=== PATIENT | male | born 1960 | race Two or more races ===

== ENCOUNTER 2019-09-06 16:49 | Inpatient (IN) | payer OTHER, MEDICAID ==
[~2019-09-06 16:49] MED LIST: LORAZEPAM INJ 2 MG/1 ML VIAL ONE
[2019-09-06] MEDS ORDERED: LORAZEPAM INJ 2 MG/1 ML VIAL ONE ×2 (16:52→17:44)
--- NOTE | 2019-09-06 16:59 | ER Document Report ---
ED General - General Chief Complaint: Seizure Stated Complaint: SEIZURE Time Seen by Provider: 09/06/19 16:59 Notes: Patient is a 59-year-old male with history of alcohol use that presents to the emergency department for chief complaint of back pain and seizures. History provided mainly by EMS and patient's and and family. Apparently earlier today the patient was feeling lightheaded, and when he was leaving work, he started vomiting after drinking a 5-hour energy drink according to his friend that he works with, and then he started complaining of low back pain which she has a history of according to the patient's son, and EMS was called due to the pain and they got him in the ambulance, they gave him IV Dilaudid, and shortly after started having generalized seizure activity, he was given IM Versed 5 mg, then 2 mg of IV Ativan as he had a few more episodes of seizure-like activity. No reported history of seizures in the past. His last drink was yesterday evening. His son states that he drinks on a regular basis there are days that he does not drink though. No prior history of withdrawal seizures. He at this time is answering questions, mildly confused, and complaining of low back pain particularly when he sits up. It is on both sides, right going over to the left. Denies any chest pain or anterior abdominal pain. As noted he did have nausea and vomiting earlier. And per EMS he did vomit one time. Past Medical History: Alcohol use, hypertension Past Surgical History: Reviewed, no pertinent surgical history Social History: Smokes cigarettes, drinks alcohol regular basis, denies illicit drug use. Family History: Reviewed and noncontributory for presenting illness Allergies: Reviewed, see documented allergy list. REVIEW OF SYSTEMS: Other than noted above, the 12 point review of systems was reviewed with the patient and were negative, all pertinent findings are included in the HPI. PHYSICAL EXAMINATION: Vital signs reviewed, nursing noted reviewed. GENERAL: Patient is somnolent, but will answer questions, understands he is in the hospital. HEAD: Atraumatic, normocephalic. EYES: Eyes appear normal, extraocular movements intact, sclera anicteric, conjunctiva are normal. ENT: nares patent, oropharynx clear without exudates. Moist mucous membranes. NECK: Normal range of motion, supple without lymphadenopathy LUNGS: Lung sounds somewhat diminished at the bases, clear in the upper hurley, no wheezing, rhonchi or rales, no acute respiratory distress. HEART: Regular rate and rhythm without murmurs ABDOMEN: Soft, nontender, normoactive bowel sounds. No rebound, guarding, or rigidity. No masses appreciated. EXTREMITIES: Nontender, good range of motion, no pitting or edema. NEUROLOGICAL: No focal neurological deficits. Moves all extremities spontaneously Motor and sensory grossly intact on exam. Patient did have tonic- clonic activity, that resolved spontaneously, and medially after patient was able to answer simple questions. PSYCH: Flat affect, but mildly anxious as well. SKIN: Warm, diaphoretic, no rashes noted. - Related Data Allergies/Adverse Reactions: No Known Allergies Allergy (Unverified 09/06/19 18:16) Past Medical History - Social History Smoking Status: Current Every Day Smoker Family History: Reviewed & Not Pertinent Physical Exam - Vital signs Vitals: Temp Resp BP Pulse Ox 97.5 F 34 H 146/90 H 94 09/06/19 16:56 09/06/19 16:56 09/06/19 16:56 09/06/19 16:56 Course - Re-evaluation Re-evalutation: Patient seen and examined vital signs reviewed. Laboratory data and imaging were ordered as appropriate for the patient's presenting symptoms and complaint, with consideration of any critical or life threatening conditions that may be associated with their obtained history and exam as noted above. Patient was treated with supplemental oxygen, as patient was somnolent upon arrival, his pulse ox was 89% on a simple mask, briefly switched to a nonrebreather. Patient was having convulsions but is initially answering questions, and did not appear to be a true generalized tonic clonic seizure, he was answering questions, but slowly. Did not seem to be too postictal. He was complaining of back pain. Blood work, and CT scan of the abdomen and pelvis were ordered, and while the patient was in CT he did have another seizure was brought back to the emergency department, it did appear the patient was having a generally tonic-clonic seizure, eyes rolled back, is not responsive, patient was given 2 mg of IV Ativan at that point, and 10 mg of IV Valium. I was concerned the patient may be having withdrawal seizures, is been 24 hours since his last drink, although he reportedly has not had a history of withdrawal symptoms from alcohol according to family and friends. CT scan of the head was obtained and this was negative for any acute intracranial abnormality. Patient was given additional fentanyl for his pain, and Zofran for nausea. Results were reviewed when available and demonstrated negative CT of the abdomen and pelvis, no renal stone, CT of the head was negative, blood work only, showed a mild elevation white blood cell count, and slightly decreased bicarb, which does correlate with seizure. The patient was re-evaluated and was improved, was able to wean off oxygen, is answering questions more appropriately, pain seem to be somewhat better controlled. Evaluation was most consistent with new onset seizure, concern for possible alcohol withdrawal seizures, patient did not have any further seizure activity after receiving Valium and Ativan. His chest x-ray is also concerning for possible pneumonia, likely aspiration type given the patient had seizures and possibly aspirated. Was started on vancomycin and Zosyn. Results were discussed with the patient at this point after careful consideration I feel that that patient should be admitted to the hospital. This was discussed with the patient that it is in the best interest for their care to be admitted for further evaluation and management. Patient agreed with this pl an of care. A call was placed to the admitting physician, Dr. Hardwick who graciously accepted the patient onto their service. *Note is created using voice recognition software and may contain spelling, syntax or grammatical errors. Laboratory 09/06/19 09/06/19 09/06/19 16:50 16:50 16:50 WBC 11.4 H RBC 4.36 Hgb 13.6 Hct 40.2 MCV 92 MCH 31.1 MCHC 33.7 RDW 14.6 H Plt Count 215 Lymph % (Auto) 11.0 L Wise % (Auto) 6.6 Eos % (Auto) 0.2 Baso % (Auto) 0.7 Absolute Neuts (auto) 9.3 H Absolute Lymphs (auto) 1.2 Absolute Monos (auto) 0.8 Absolute Eos (auto) 0.0 Absolute Basos (auto) 0.1 Seg Neutrophils % 81.5 H Sodium 143.6 Potassium 4.1 Chloride 108 H Carbon Dioxide 21 L Anion Gap 15 BUN 19 Creatinine 1.12 Est GFR ( Amer) > 60 Est GFR (MDRD) Non-Af > 60 Glucose 133 H Calcium 9.2 Total Bilirubin 0.4 Direct Bilirubin 0.3 Neonat Total Bilirubin Not Reportable Neonat Direct Bilirubin Not Reportable Neonat Indirect Bili Not Reportable AST 29 ALT 27 Alkaline Phosphatase 64 Creatine Kinase Total Protein 7.1 Albumin 4.3 Lipase 88.0 TSH Prolactin Serum Alcohol < 10 09/06/19 09/06/19 09/06/19 16:50 16:50 16:50 WBC RBC Hgb Hct MCV MCH MCHC RDW Plt Count Lymph % (Auto) Wise % (Auto) Eos % (Auto) Baso % (Auto) Absolute Neuts (auto) Absolute Lymphs (auto) Absolute Monos (auto) Absolute Eos (auto) Absolute Basos (auto) Seg Neutrophils % Sodium Potassium Chloride Carbon Dioxide Anion Gap BUN Creatinine Est GFR ( Amer) Est GFR (MDRD) Non-Af Glucose Calcium Total Bilirubin Direct Bilirubin Neonat Total Bilirubin Neonat Direct Bilirubin Neonat Indirect Bili AST ALT Alkaline Phosphatase Creatine Kinase 193 H Total Protein Albumin Lipase TSH 0.60 Prolactin 27.19 H Serum Alcohol Abdomen/Pelvis CT 09/06/19 17:00 IMPRESSION: There are no acute findings in the abdomen or pelvis. There is mild airspace disease in the lower lobes of the lungs, atelectasis versus pneumonia. Chest X-Ray 09/06/19 17:01 IMPRESSION: Low inspiratory lung volumes and patchy bibasilar opacities that could represent atelectasis. Clinical correlation to exclude an infection is recommended. Head CT 09/06/19 18:24 IMPRESSION: No acute intracranial abnormality. EVIDENCE OF ACUTE STROKE: NO. 09/06/19 22:36 - Vital Signs Vital signs: Temp Pulse Resp BP Pulse Ox 97.5 F 14 109/63 96 09/06/19 16:56 09/06/19 22:00 09/06/19 21:01 09/06/19 22:00 - Laboratory Result Diagrams: 09/06/19 16:50 09/06/19 16:50 Laboratory results interpreted by me: 09/06/19 09/06/19 09/06/19 16:50 16:50 16:50 WBC 11.4 H RDW 14.6 H Lymph % (Auto) 11.0 L Absolute Neuts (auto) 9.3 H Seg Neutrophils % 81.5 H Chloride 108 H Carbon Dioxide 21 L Glucose 133 H Creatine Kinase Prolactin 27.19 H 09/06/19 16:50 WBC RDW Lymph % (Auto) Absolute Neuts (auto) Seg Neutrophils % Chloride Carbon Dioxide Glucose Creatine Kinase 193 H Prolactin - EKG Interpretation by Me Additional EKG results interpreted by me: EKG demonstrates sinus rhythm with a ventricular rate of 83 bpm, normal axis, QTC 480 ms, no ST elevation, no prior for comparison. Critical Care Note - Critical Care Note Total time excluding time spent on procedures (mins): 34 Comments: Critical care time 34 minutes exclusive from separate billable procedures for a patient requiring complex medical decision making, and high potential for clinical deterioration. In a patient with multiple seizures, and hypoxia, concern for medical deterioration from neuro logical standpoint. Time spent obtaining history from patient or surrogate, discussions with consultants, development of treatment plan with patient or surrogate, evaluation of patient's response to treatment, examination of patient, ordering and performing treatments and interventions, ordering and review of laboratory studies, re- evaluation of patient's condition, ordering and review of radiographic studies and review of old charts Discharge - Discharge Clinical Impression: Seizure Aspiration pneumonia Qualifiers: Aspiration pneumonia type: unspecified Laterality: unspecified laterality Lung location: unspecified part of lung Qualified Code(s): J69.0 - Pneumonitis due to inhalation of food and vomit Leukocytosis Qualifiers: Leukocytosis type: unspecified Qualified Code(s): D72.829 - Elevated white blood cell count, unspecified Back pain Qualifiers: Back pain location: low back pain Chronicity: unspecified Back pain laterality: bilateral Sciatica presence: unspecified whether sciatica present Qualified Code(s): M54.5 - Low back pain Condition: Stable Disposition: ADMITTED OBSERVATION Admitting Provider: Ronen (Hospitalist) Unit Admitted: Telemetry
[2019-09-06 17:09] LABS: ABSOLUTE BASOPHILS # (AUTO) 0.1 10^3/uL (0.0-0.2); ABSOLUTE LYMPHOCYTES (AUTO) 1.2 10^3/uL (0.5-4.7); ABSOLUTE MONOCYTES (AUTO) 0.8 10^3/uL (0.1-1.4); ABSOLUTE NEUT (AUTO) 9.3 10^3/uL (1.7-8.2); BASOPHILS % (AUTO) 0.7 % (0-2); EOSINOPHILS % (AUTO) 0.2 % (0-6); HEMATOCRIT 40.2 % (37.9-51.0); HEMOGLOBIN 13.6 g/dL (13.5-17.0); MEAN CORPUSCULAR HEMOGLOBIN 31.1 pg (27.0-33.4); MEAN CORPUSCULAR HGB CONC 33.7 g/dL (32.0-36.0); MEAN CORPUSCULAR VOLUME 92 fl (80-97); MONOCYTES % (AUTO) 6.6 % (3-13); PLATELET COUNT 215 10^3/uL (150-450); RED BLOOD COUNT 4.36 10^6/uL (4.35-5.55); RED CELL DISTRIBUTION WIDTH 14.6 % (11.5-14.0); SEGMENTED NEUTROPHILS % (AUTO) 81.5 % (42-78); TOTAL CELLS COUNTED % (AUTO) 100 %; WHITE BLOOD COUNT 11.4 10^3/uL (4.0-10.5)
[2019-09-06 17:34] LABS: ALBUMIN 4.3 g/dL (3.5-5.0); ALKALINE PHOSPHATASE 64 U/L (38-126); ANION GAP 15 (5-19); ASPARTATE AMINO TRANSFERASE 29 U/L (17-59); BILIRUBIN,DIRECT 0.3 mg/dL (0.0-0.4); BILIRUBIN,TOTAL 0.4 mg/dL (0.2-1.3); BLOOD UREA NITROGEN 19 mg/dL (7-20); CALCIUM 9.2 mg/dL (8.4-10.2); CARBON DIOXIDE 21 mmol/L (22-30); CHLORIDE 108 mmol/L (98-107); GLUCOSE 133 mg/dL (75-110); POTASSIUM 4.1 mmol/L (3.6-5.0); TOTAL PROTEIN 7.1 g/dL (6.3-8.2)
[2019-09-06 17:43] LABS: ALCOHOL < 10 mg/dL (NONE DETECTED)
[2019-09-06] MEDS ORDERED: LORAZEPAM INJ 2 MG/1 ML VIAL IV ONE (17:46)
[2019-09-06] MEDS ORDERED: DIAZEPAM INJ 10 MG/2 ML DISP.SYRIN IV ONE (17:46)
--- NOTE | 2019-09-06 18:03 | RADIOLOGY REPORT (SQ) ---
EXAM DESCRIPTION: CT ABD/PELVIS NO ORAL OR IV COMPLETED DATE/TIME: 09/06/2019 5:37 pm REASON FOR STUDY: right flank pain COMPARISON: None. TECHNIQUE: CT scan of the abdomen and pelvis performed without intravenous or oral contrast. Images reviewed with lung, soft tissue, and bone windows. Reconstructed coronal and sagittal MPR images revi ewed. All images stored on PACS. All CT scanners at this facility use dose modulation, iterative reconstruction, and/or weight based d osing when appropriate to reduce radiation dose to as low as reasonably achievable (ALARA). [facility]: Dose Right [facility]: CareDose [facility]: Dose Right [facility]: Teradose 4D [facility]: [employer] RADIATION DOSE: mGy. LIMITATIONS: None. FINDINGS: LOWER CHEST: Mild airspace disease in both lower lobes, atelectasis versus pneumonia. NON-CONTRASTED LIVER, SPLEEN, ADRENALS: 3 hepatic cysts are seen. No masses. Spleen is normal. The re is no adrenal mass. PANCREAS: No masses. No peripancreatic inflammatory changes. GALLBLADDER: No identified stones by CT criteria. No inflammatory changes to suggest cholecystitis. RIGHT KIDNEY AND URETER: No suspicious masses. Assessment limited by lack of IV contrast. No signif icant calcifications. No hydronephrosis or hydroureter. LEFT KIDNEY AND URETER: No suspicious masses. Assessment limited by lack of IV contrast. No signifi cant calcifications. No hydronephrosis or hydroureter. AORTA AND RETROPERITONEUM: No aneurysm. No retroperitoneal masses or adenopathy. BOWEL AND PERITONEAL CAVITY: No obvious masses or inflammatory changes. No free fluid. APPENDIX: Normal. PELVIS, BLADDER, AND ABDOMINAL WALL:No abnormal masses. No free fluid. Bladder normal. BONES: No significant findings. OTHER: No other significant finding. IMPRESSION: There are no acute findings in the abdomen or pelvis. There is mild airspace disease in the lower lobes of the lungs, atelectasis versus pneumonia. COMMENT: Quality ID # [id number]: Final reports with documentation of one or more dose reduction techniques (e.g., Automated exposure control, adjustment of the mA and/or kV according to patient size, use of iterative reconstruction technique) TECHNICAL DOCUMENTATION: JOB ID: [id number] [employer]- All Rights Reserved Reading location - IP/workstation name: [email or web address]
[2019-09-06] MEDS ORDERED: PIPERACILLIN/TAZOBACTAM 4.5 GM VIAL IV ONE (18:15)
[2019-09-06] MEDS ORDERED: VANCOMYCIN HCL INJ 1000 MG VIAL IV ONE (18:15)
--- NOTE | 2019-09-06 18:27 | RADIOLOGY REPORT (SQ) ---
EXAM DESCRIPTION: CHEST SINGLE VIEW COMPLETED DATE/TIME: 09/06/2019 5:46 pm REASON FOR STUDY: possible seizure COMPARISON: CT of the abdomen pelvis from 09/06/2019. EXAM PARAMETERS: NUMBER OF VIEWS: One view. TECHNIQUE: Single frontal radiographic view of the chest acquired. RADIATION DOSE: NA LIMITATIONS: None. FINDINGS: LUNGS AND PLEURA: Low inspiratory lung volumes and patchy bibasilar opacities that could r epresent atelectasis. There is no consolidation, sizeable pleural effusion or pneumothorax. MEDIASTINUM AND HILAR STRUCTURES: No mediastinal or hilar contour abnormality HEART AND VASCULAR STRUCTURES: The cardiac silhouette and pulmonary vasculature within normal limits given the low inspiratory lung volumes. BONES: No acute findings. HARDWARE: Spinal stimulator. OTHER: No other finding. IMPRESSION: Low inspiratory lung volumes and patchy bibasilar opacities that could represent atelect asis. Clinical correlation to exclude an infection is recommended. TECHNICAL DOCUMENTATION: JOB ID: [id number] [employer]- All Rights Reserved Reading location - IP/workstation name: [email or web address]
--- NOTE | 2019-09-06 19:06 | RADIOLOGY REPORT (SQ) ---
EXAM DESCRIPTION: CT HEAD WITHOUT COMPLETED DATE/TIME: 09/06/2019 6:52 pm REASON FOR STUDY: seizure COMPARISON: None. TECHNIQUE: Axial images acquired through the brain without intravenous contrast. Images reviewed wi th bone, brain and subdural windows. Additional sagittal and coronal reconstructions were generated. Images stored on PACS. All CT scanners at this facility use dose modulation, iterative reconstruction, and/or weight based d osing when appropriate to reduce radiation dose to as low as reasonably achievable (ALARA). [facility]: Dose Right [facility]: CareDose [facility]: Dose Right [facility]: Teradose 4D [facility]: [employer] LIMITATIONS: None. FINDINGS: There is no acute intracranial hemorrhage, vascular territorial infarct, extra-axial fluid collection, mass effect, or midline shift. There is no effacement of the cerebral sulci or basal grove barachnoid cisterns. The pena-white matter differentiation is preserved. The caliber of the ventric les is concordant with the degree of sulcation. There is a chronic fracture of the medial wall of the left orbit. The globes are intact. There is a mucous retention cyst within the right maxillary sinus. The other paranasal sinuses are clear. The re is no fracture of the calvarium. IMPRESSION: No acute intracranial abnormality. EVIDENCE OF ACUTE STROKE: NO. COMMENT: Quality ID # [id number]: Final reports with documentation of one or more dose reduction techniques (e.g., Automated exposure control, adjustment of the mA and/or kV according to patient size, use of iterative reconstruction technique) TECHNICAL DOCUMENTATION: JOB ID: [id number] [email or web address]- All Rights Reserved Reading location - IP/workstation name: [email or web address]
[2019-09-06] MEDS ORDERED: FENTANYL CITRATE INJ/PF 100 MCG/2 ML AMPUL IV ONE (19:32)
[2019-09-06] MEDS ORDERED: HYDRALAZINE HCL INJ/PF 20 MG/1 ML SDV IV PRN (20:05)
[2019-09-06] MEDS ORDERED: ACETAMINOPHEN 325 MG TABLET PO PRN (20:05)
[2019-09-06] MEDS ORDERED: IPRATROPIUM/ALBUTEROL 0.5-2.5 MG/3 ML AMPUL NEB PRN (20:05)
[2019-09-06] MEDS ORDERED: ONDANSETRON HCL INJ/PF 4 MG/2 ML SDV IV ONE (20:09)
[2019-09-06] MEDS ORDERED: VANCOMYCIN HCL 0 MG in DEXTROSE 5%-WATER 250 ML IV NR (20:15)
--- NOTE | 2019-09-06 20:19 | EKG REPORT ---
SEVERITY:- BORDERLINE ECG - SINUS RHYTHM BORDERLINE T ABNORMALITIES, DIFFUSE LEADS BORDERLINE PROLONGED QT INTERVAL : Confirmed by: Charlette Cadet MD 06-Sep-2019 20:18:48
[2019-09-06] MEDS: HEPARIN SOD (PORCINE) 5,000 UNIT/ML 1 ML VIAL SUBCUT SCH (21:29)
[2019-09-06] MEDS: LEVETIRACETAM 1500 MG/NACL-ISO 1,500 MG/100 ML RTUPB IV SCH (21:51)
[2019-09-06 22:42] LABS: APPEARANCE,URINE CLEAR; BILIRUBIN,URINE NEGATIVE (NEGATIVE); COLOR,URINE YELLOW; GLUCOSE, URINE 150 mg/dL (NEGATIVE); KETONES,URINE TRACE mg/dL (NEGATIVE); PROTEIN,URINE NEGATIVE (NEGATIVE); URINE SPECIFIC GRAVITY 1.029; UROBILINOGEN,URINE NEGATIVE mg/dL (<2.0)
[2019-09-06 23:02] LABS: URINE AMPHETAMINES SCREEN NEGATIVE; URINE BARBITURATES SCREEN NEGATIVE; URINE BENZODIAZEPINES SCREEN UNCONFIRMED POSITIVE; URINE COCAINE SCREEN NEGATIVE; URINE MARIJUANA (THC) SCREEN NEGATIVE; URINE METHADONE SCREEN NEGATIVE; URINE PHENCYCLIDINE SCREEN NEGATIVE
[2019-09-06] MEDS: IPRATROPIUM/ALBUTEROL 0.5-2.5 MG/3 ML AMPUL NEB SCH (23:22)
[2019-09-07] MEDS ORDERED: ONDANSETRON HCL INJ/PF 4 MG/2 ML SDV IV ONE (00:12)
[2019-09-07] MEDS: LORAZEPAM INJ 2 MG/1 ML VIAL IV PRN ×3 (02:07→21:23)
[2019-09-07] MEDS: KETOROLAC TROMETHAMINE INJ/PF 30 MG/1 ML SDV IV PRN ×3 (02:19→22:42)
[2019-09-07] MEDS ORDERED: PHENYTOIN SODIUM INJ/PF 250 MG/5 ML SDV ONE (02:57)
[2019-09-07] MEDS ORDERED: PHENYTOIN SODIUM 1,000 MG in NORMAL SALINE 250 ML IV ONE (04:00)
[2019-09-07] MEDS ORDERED: DIAZEPAM INJ 10 MG/2 ML DISP.SYRIN IV ONE (04:00)
[2019-09-07] MEDS: HEPARIN SOD (PORCINE) 5,000 UNIT/ML 1 ML VIAL SUBCUT SCH ×3 (05:56→22:41)
[2019-09-07] MEDS: VANCOMYCIN HCL 1,250 MG in DEXTROSE 5%-WATER 250 ML IV SCH ×2 (05:56→18:04)
--- NOTE | 2019-09-07 06:48 | PDOC H&P ---
History of Present Illness Admission Date/PCP: 09/06/19 20:15 Patient complains of: Seizure History of Present Illness: KIANNA HOLBROOK is a 59 year old male with a past medical history of chronic pain presents with intractable pain and recurrent tonic-clonic seizure with a brief postictal state. Patient presents after consuming a 5-hour energy drink followed by vomiting with lightheadedness followed by seizure prompting a call to EMS. EMS reports a second tonic-clonic seizure. He receives 5 mg of IM Versed and 2 mg of IV Ativan. In the emergency room he had several more episodes but returned to baseline. Biochemical and imaging work-up was unremark able with exception to leukocytosis and elevated prolactin. He is referred to the hospitalist for admission. Patient admits daily alcohol but does not quantify. He denies previous episode, recent change of medication regiment and is otherwise felt well With exception to poorly controlled chronic pain. Past Medical History Cardiac Medical History: Reports: Hypertension Social History Information Source: Patient Smoking Status: Current Every Day Smoker Frequency of Alcohol Use: Heavy Drugs: None - Advance Directive Resuscitation Status: Full Code Family History Family History: Hypertension Parental Family History Reviewed: Yes Children Family History Reviewed: Yes Sibling(s) Family History Reviewed.: Yes Medication/Allergy Allergies/Adverse Reactions: No Known Allergies Allergy (Unverified 09/06/19 18:16) Review of Systems Constitutional: ABSENT: chills, fever(s), headache(s), weight gain, weight loss Eyes: ABSENT: visual disturbances Ears: ABSENT: hearing changes Cardiovascular: ABSENT: chest pain, dyspnea on exertion, edema, orthropnea, palpitations Respiratory: ABSENT: cough, hemoptysis Gastrointestinal: ABSENT: abdominal pain, constipation, diarrhea, hematemesis, hematochezia, nausea, vomiting Genitourinary: ABSENT: dysuria, hematuria Musculoskeletal: ABSENT: joint swelling Integumentary: ABSENT: rash, wounds Neurological: ABSENT: abnormal gait, abnormal speech, confusion, dizziness, focal weakness, syncope Psychiatric: ABSENT: anxiety, depression, homidical ideation, suicidal ideation Endocrine: ABSENT: cold intolerance, heat intolerance, polydipsia, polyuria Hematologic/Lymphatic: ABSENT: easy bleeding, easy bruising Physical Exam Vital Signs: Temp Pulse Resp BP Pulse Ox 97.5 F 70 16 129/68 H 96 09/07/19 03:44 09/07/19 03:44 09/07/19 03:44 09/07/19 03:44 09/07/19 03:44 Intake & Output 09/05/19 09/06/19 09/07/19 11:59 11:59 11:59 Intake Total 350 Output Total 0 Balance 350 Weight 98.8 kg General appearance: PRESENT: cooperative, mild distress, well-developed, well- nourished Head exam: PRESENT: atraumatic, normocephalic Eye exam: PRESENT: conjunctiva pink, EOMI, PERRLA. ABSENT: scleral icterus Ear exam: PRESENT: normal external ear exam Mouth exam: PRESENT: moist, tongue midline Neck exam: ABSENT: carotid bruit, JVD, lymphadenopathy, thyromegaly Respiratory exam: PRESENT: clear to auscultation micky. ABSENT: rales, rhonchi, wheezes Cardiovascular exam: PRESENT: RRR. ABSENT: diastolic murmur, rubs, systolic murmur Pulses: PRESENT: normal dorsalis pedis pul Vascular exam: PRESENT: normal capillary refill GI/Abdominal exam: PRESENT: normal bowel sounds, soft. ABSENT: distended, guarding, mass, organolmegaly, rebound, tenderness Torso Front/Back Image: 1 - Reproducible chronic back pain Rectal exam: PRESENT: deferred Extremities exam: PRESENT: full ROM. ABSENT: calf tenderness, clubbing, pedal edema Neurological exam: PRESENT: alert, awake, oriented to person, oriented to place, oriented to time, oriented to situation, CN II-XII grossly intact. ABSENT: motor sensory deficit Psychiatric exam: PRESENT: appropriate affect, normal mood. ABSENT: homicidal ideation, suicidal ideation Skin exam: PRESENT: dry, intact, warm. ABSENT: cyanosis, rash Results Laboratory Results: 09/06/19 16:50 09/06/19 16:50 09/06/19 09/06/19 09/06/19 16:50 16:50 16:50 WBC 11.4 H RBC 4.36 Hgb 13.6 Hct 40.2 MCV 92 MCH 31.1 MCHC 33.7 RDW 14.6 H Plt Count 215 Seg Neutrophils % 81.5 H Sodium 143.6 Potassium 4.1 Chloride 108 H Carbon Dioxide 21 L Anion Gap 15 BUN 19 Creatinine 1.12 Est GFR ( Amer) > 60 Glucose 133 H Calcium 9.2 Total Bilirubin 0.4 AST 29 Alkaline Phosphatase 64 Total Protein 7.1 Albumin 4.3 Lipase 88.0 TSH Urine Color Urine Appearance Urine pH Ur Specific [place] Urine Protein Urine Glucose (UA) Urine Ketones Urine Blood Urine Nitrite Ur Leukocyte Esterase Urine WBC (Auto) Urine RBC (Auto) 09/06/19 09/06/19 16:50 22:07 WBC RBC Hgb Hct MCV MCH MCHC RDW Plt Count Seg Neutrophils % Sodium Potassium Chloride Carbon Dioxide Anion Gap BUN Creatinine Est GFR ( Amer) Glucose Calcium Total Bilirubin AST Alkaline Phosphatase Total Protein Albumin Lipase TSH 0.60 Urine Color YELLOW Urine Appearance CLEAR Urine pH 6.0 Ur Specific [place] 1.029 Urine Protein NEGATIVE Urine Glucose (UA) 150 H Urine Ketones TRACE H Urine Blood NEGATIVE Urine Nitrite Cancelled Ur Leukocyte Esterase Cancelled Urine WBC (Auto) Cancelled Urine RBC (Auto) 2 09/06/19 16:50 Creatine Kinase 193 H Impressions: Abdomen/Pelvis CT 09/06/19 17:00 IMPRESSION: There are no acute findings in the abdomen or pelvis. There is mild airspace disease in the lower lobes of the lungs, atelectasis versus pneumonia. Chest X-Ray 09/06/19 17:01 IMPRESSION: Low inspiratory lung volumes and patchy bibasilar opacities that could represent atelectasis. Clinical correlation to exclude an infection is recommended. Head CT 09/06/19 18:24 IMPRESSION: No acute intracranial abnormality. EVIDENCE OF ACUTE STROKE: NO. Assessment and Plan - Diagnosis (1) Seizure Is this a current diagnosis for this admission?: Yes Plan: Probable alcohol withdrawal seizure differential of meningitis. Keppra, Dilantin, scheduled Valium and Ativan as needed follow-up MRI head. (2) Meningitis Is this a current diagnosis for this admission?: Yes Plan: Possible underlying cause of seizure. Empiric antibiotics initiated, consider LP. Follow-up blood culture and CBC (3) Back pain Qualifiers: Back pain location: low back pain Chronicity: unspecified Back pain laterality: bilateral Sciatica presence: unspecified whether sciatica present Qualified Code(s): M54.5 - Low back pain Is this a current diagnosis for this admission?: Yes Plan: Patient admits location of current pain is chronic. NSAIDs. Narcotics PRN - Time Time Spent with patient: 35 or more minutes - Inpatient Certification Medical Necessity: Need Close Monitoring Due to Risk of Patient Decompensation
[2019-09-07] MEDS: THIAMINE HCL 100 MG, FOLIC ACID 1 MG in NORMAL SALINE 250 ML IV SCH ×2 (06:59→11:40)
[2019-09-07 07:22] LABS: ABSOLUTE BASOPHILS # (AUTO) 0.1 10^3/uL (0.0-0.2); ABSOLUTE EOSINOPHILS # (AUTO) 0.2 10^3/uL (0.0-0.6); ABSOLUTE LYMPHOCYTES (AUTO) 2.2 10^3/uL (0.5-4.7); ABSOLUTE MONOCYTES (AUTO) 0.9 10^3/uL (0.1-1.4); ABSOLUTE NEUT (AUTO) 5.9 10^3/uL (1.7-8.2); BASOPHILS % (AUTO) 0.7 % (0-2); EOSINOPHILS % (AUTO) 1.9 % (0-6); HEMATOCRIT 39.2 % (37.9-51.0); HEMOGLOBIN 13.3 g/dL (13.5-17.0); LYMPHOCYTES % (AUTO) 23.5 % (13-45); MEAN CORPUSCULAR HEMOGLOBIN 31.5 pg (27.0-33.4); MEAN CORPUSCULAR VOLUME 93 fl (80-97); MONOCYTES % (AUTO) 9.8 % (3-13); PLATELET COUNT 200 10^3/uL (150-450); RED BLOOD COUNT 4.23 10^6/uL (4.35-5.55); RED CELL DISTRIBUTION WIDTH 14.9 % (11.5-14.0); SEGMENTED NEUTROPHILS % (AUTO) 64.1 % (42-78); TOTAL CELLS COUNTED % (AUTO) 100 %; WHITE BLOOD COUNT 9.2 10^3/uL (4.0-10.5)
[2019-09-07 07:42] LABS: ALKALINE PHOSPHATASE 59 U/L (38-126); ANION GAP 8 (5-19); ASPARTATE AMINO TRANSFERASE 28 U/L (17-59); BILIRUBIN,DIRECT 0.2 mg/dL (0.0-0.4); BILIRUBIN,TOTAL 0.4 mg/dL (0.2-1.3); BLOOD UREA NITROGEN 20 mg/dL (7-20); CALCIUM 8.9 mg/dL (8.4-10.2); CARBON DIOXIDE 28 mmol/L (22-30); CHLORIDE 108 mmol/L (98-107); GLUCOSE 159 mg/dL (75-110); POTASSIUM 3.9 mmol/L (3.6-5.0); TOTAL PROTEIN 6.7 g/dL (6.3-8.2)
[2019-09-07] MEDS: IPRATROPIUM/ALBUTEROL 0.5-2.5 MG/3 ML AMPUL NEB SCH ×2 (08:41→16:09)
[2019-09-07] MEDS ORDERED: CEFTRIAXONE 1 GM/D5W RTU 1 GM/50 ML RTUPB IV SCH (10:00)
[2019-09-07] MEDS: DIAZEPAM INJ 10 MG/2 ML DISP.SYRIN IV SCH ×2 (11:38→18:04)
[2019-09-07] MEDS: LEVETIRACETAM 1500 MG/NACL-ISO 1,500 MG/100 ML RTUPB IV SCH ×2 (11:40→22:40)
[2019-09-08] MEDS: IPRATROPIUM/ALBUTEROL 0.5-2.5 MG/3 ML AMPUL NEB SCH ×3 (00:04→16:15)
[2019-09-08] MEDS: LORAZEPAM INJ 2 MG/1 ML VIAL IV PRN ×3 (03:53→07:21)
[2019-09-08] MEDS: HEPARIN SOD (PORCINE) 5,000 UNIT/ML 1 ML VIAL SUBCUT SCH ×3 (06:17→22:15)
[2019-09-08] MEDS: LEVETIRACETAM 1500 MG/NACL-ISO 1,500 MG/100 ML RTUPB IV SCH ×2 (11:33→22:14)
--- NOTE | 2019-09-08 13:15 | PDOC PROGRESS REPORT ---
Subjective Progress Note for:: 09/08/19 Subjective:: Patient states that he would like to go home. Patient states that his spine implant is MRI compatible. However MRI department was not able to operate and tone of the signal from his spinal implant and as such states that they cannot perform the MRI. Patient denies any headaches or dizziness but still appears a little drowsy from medication. Reason For Visit: MENINGITIS PNEUMONIA Physical Exam Vital Signs: Temp Pulse Resp BP Pulse Ox 98.2 F 72 18 102/77 98 09/08/19 11:36 09/08/19 11:36 09/08/19 11:36 09/08/19 11:36 09/08/19 11:36 Intake & Output 09/07/19 09/08/19 09/09/19 06:59 06:59 06:59 Intake Total 350 751.2 100 Output Total 0 450 Balance 350 301.2 100 Weight 98.8 kg 98.9 kg General appearance: PRESENT: no acute distress Head exam: ABSENT: atraumatic Eye exam: PRESENT: EOMI Mouth exam: PRESENT: moist Neck exam: ABSENT: JVD Respiratory exam: PRESENT: clear to auscultation micky Cardiovascular exam: PRESENT: RRR, +S1, +S2 GI/Abdominal exam: PRESENT: normal bowel sounds, soft Extremities exam: ABSENT: clubbing Neurological exam: PRESENT: alert, awake - Both just a little bit drowsy, oriented to person, oriented to place, oriented to time, oriented to situation, motor sensory deficit - Not able to comply fully with us assessment of his strength, other - Patient is fully conversational. Responds appropriately to questions. And expresses full understanding of his current situation Results Laboratory Results: 09/07/19 06:56 09/07/19 06:56 09/06/19 16:50 Creatine Kinase 193 H Impressions: Abdomen/Pelvis CT 09/06/19 17:00 IMPRESSION: There are no acute findings in the abdomen or pelvis. There is mild airspace disease in the lower lobes of the lungs, atelectasis versus pneu monia. Chest X-Ray 09/06/19 17:01 IMPRESSION: Low inspiratory lung volumes and patchy bibasilar opacities that could represent atelectasis. Clinical correlation to exclude an infection is recommended. Head CT 09/06/19 18:24 IMPRESSION: No acute intracranial abnormality. EVIDENCE OF ACUTE STROKE: NO. Assessment and Plan - Diagnosis (1) Seizure Is this a current diagnosis for this admission?: Yes Plan: Still uncertain what the cause of patient's seizure is. Patient continues to insist that he has never had any alcohol withdrawals nor has he ever had any seizures before. States that his last drink was about 2 days prior to arrival. There is only mild suspicion for possible alcohol withdrawal as cause of seizure however however patient's autonomic size given lack of profuse hypertension on and lack of tachycardia no fever make it very unlikely that patient was any significant alcohol withdrawal. Patient also lacks meningeal signs, fever and other signs of significant infection to suggest meningitis. Antibiotics discontinued. Will follow blood cultures CT head negative MRI brain was unable to be performed because radiology could not deactivate patient's spinal stimulator inplant Obtain EEG Continue with Anaid for now Patient has been instructed clearly that he is not allowed to drive or operate heavy machinery until he follows up with a neurologist outside the hospital and has been seizure-free for at least 6 to 12 months. (2) Hyperprolactinemia Is this a current diagnosis for this admission?: Yes Plan: Likely secondary to seizures (3) Chronic back pain Is this a current diagnosis for this admission?: Yes (4) Alcohol abuse Is this a current diagnosis for this admission?: Yes Plan: CIWA. Patient does not appear to be having significant withdrawal besides tremors. - Time Time Spent with patient: 15-24 minutes
[2019-09-08] MEDS: THIAMINE HCL 100 MG, FOLIC ACID 1 MG in NORMAL SALINE 250 ML IV SCH (13:57)
--- NOTE | 2019-09-08 18:30 | RADIOLOGY REPORT (SQ) ---
EXAM DESCRIPTION: CT HEAD COMBO COMPLETED DATE/TIME: 09/08/2019 6:08 pm REASON FOR STUDY: Unexplained seizures, ?mass/stroke, W WO CONTRAST COMPARISON: 09/06/2019 TECHNIQUE: Axial images acquired through the brain without and with intravenous contrast. Images re viewed with bone, brain and subdural windows. Additional sagittal and coronal reconstructions were g enerated. Images stored on PACS. All CT scanners at this facility use dose modulation, iterative reconstruction, and/or weight based d osing when appropriate to reduce radiation dose to as low as reasonably achievable (ALARA). [facility]: Dose Right [facility]: CareDose [facility]: Dose Right [facility]: Teradose 4D [facility]: CureVac CONTRAST TYPE AND DOSE: 50 mL Omnipaque 350 iodinated contrast IV RENAL FUNCTION: GFR > 60. RADIATION DOSE: 2679 mGy cm LIMITATIONS: None. FINDINGS: VENTRICLES: Normal size and contour. CEREBRUM: No masses. No hemorrhage. No midline shift. Normal pena/white matter differentiation. No ev idence for acute infarction. No enhancing lesions. CEREBELLUM: No masses. No hemorrhage. No alteration of density. No evidence for acute infarction. No enhancing lesions. EXTRA-AXIAL SPACES: No fluid collections. No enhancing lesions. ORBITS AND GLOBE: No intra- or extraconal masses. Normal contour of globe without masses. CALVARIUM: No fracture. PARANASAL SINUSES: No fluid or mucosal thickening. SOFT TISSUES: No mass or hematoma. OTHER: No other significant finding. IMPRESSION: No acute intracranial pathology. No CT findings to explain new onset seizures. No abno rmal intracranial contrast enhancement. EVIDENCE OF ACUTE STROKE: NO. TECHNICAL DOCUMENTATION: JOB ID: [id number] Quality ID # [id number]: Final reports with documentation of one or more dose reduction techniques (e.g., Au tomated exposure control, adjustment of the mA and/or kV according to patient size, use of iterative reconstruction technique) 2010 [employer]- All Rights Reserved Reading location - IP/workstation name: [email or web address]
[2019-09-09] MEDS: IPRATROPIUM/ALBUTEROL 0.5-2.5 MG/3 ML AMPUL NEB SCH ×3 (00:08→15:27)
[2019-09-09] MEDS: HEPARIN SOD (PORCINE) 5,000 UNIT/ML 1 ML VIAL SUBCUT SCH ×2 (05:49→14:04)
[2019-09-09] MEDS: LEVETIRACETAM 1500 MG/NACL-ISO 1,500 MG/100 ML RTUPB IV SCH ×2 (10:25→21:26)
[2019-09-09] MEDS: THIAMINE HCL 100 MG, FOLIC ACID 1 MG in NORMAL SALINE 250 ML IV SCH (11:16)
--- NOTE | 2019-09-09 11:38 | PDOC PROGRESS REPORT ---
Subjective Progress Note for:: 09/09/19 Subjective:: Today patient states that he does not remember anything from the prior days. States that he woke up to find himself surprised to be here. He claims that his last recollection is from prior to being in the hospital. Despite prior vivid lucid conversations patient denies recollecting any of will be discussed. Patient states that he still feels like his equilibrium is off. Reason For Visit: MENINGITIS PNEUMONIA Physical Exam Vital Signs: Temp Pulse Resp BP Pulse Ox 97.5 F 74 16 114/75 96 09/09/19 07:54 09/09/19 08:22 09/09/19 08:22 09/09/19 07:54 09/09/19 08:22 Intake & Output 09/08/19 09/09/19 09/10/19 06:59 06:59 06:59 Intake Total 751.2 520 100 Output Total 450 Balance 301.2 520 100 Weight 98.9 kg 101.1 kg General appearance: PRESENT: cooperative Head exam: PRESENT: atraumatic Eye exam: PRESENT: EOMI. ABSENT: nystagmus Mouth exam: PRESENT: moist Neck exam: ABSENT: JVD Respiratory exam: PRESENT: clear to auscultation micky Cardiovascular exam: PRESENT: RRR, +S1, +S2 Vascular exam: ABSENT: pallor GI/Abdominal exam: PRESENT: normal bowel sounds, soft Neurological exam: PRESENT: alert, awake, oriented to person, oriented to place, oriented to time, oriented to situation, abnormal gait - Walks very sluggishly with only fair balance, CN II-XII grossly intact, other - Normal [id number]-[id number] test and rapid alternating hand movement test both upper extremities. [id number] testing limited by back pain.. ABSENT: motor sensory deficit, aphasic Psychiatric exam: PRESENT: unusual affect Results Laboratory Results: 09/07/19 06:56 09/07/19 06:56 09/06/19 16:50 Creatine Kinase 193 H Impressions: Abdomen/Pelvis CT 09/06/19 17:00 IMPRESSION: There are no acute findings in the abdomen or pelvis. There is mild airspace disease in the lower lobes of the lungs, atelectasis versus pneumonia. Chest X-Ray 09/06/19 17:01 IMPRESSION: Low inspiratory lung volumes and patchy bibasilar opacities that could represent atelectasis. Clinical correlation to exclude an infection is recommended. Head CT 09/08/19 00:00 IMPRESSION: No acute intracranial pathology. No CT findings to explain new onset seizures. No abnormal intracranial contrast enhancement. EVIDENCE OF ACUTE STROKE: NO. Assessment and Plan - Diagnosis (1) Seizure Is this a current diagnosis for this admission?: Yes Plan: -Patient situation is very unusual. Still currently trying to investigate the cause of patient's seizures. Despite patient's drinking habits, it is unlikely the patient is or was withdrawing from alcohol at the time of the seizures or currently given lack of autonomic overdrive and normal vital signs. -In investigating potential cause of his seizure especially in light of persistent disequilibrium and his reported forgetfulness, head CT with and without contrast was negative for any infarcts, masses or other findings to explain seizure. MRI was unable to be obtained because of patient's spinal implant and nonfunctional remote to turn of the implant. However patient will ultimately require an MRI of the brain outpatient once he can sort out the issue with the remote of his spinal implant. -We will continue Keppra in light of persistence of neurological findings -Currently awaiting EEG -Patient has been instructed clearly once again that he is not allowed to drive or operate heavy machinery until he follows up with a neurologist outside the hospital and has been seizure-free for at least 6 to 12 months. (2) Hyperprolactinemia Is this a current diagnosis for this admission?: Yes Plan: Likely secondary to seizures (3) Chronic back pain Is this a current diagnosis for this admission?: Yes (4) Alcohol abuse Is this a current diagnosis for this admission?: Yes Plan: CIWA. Patient does not appear to be having significant withdrawal. (5) Encephalopathy acute Is this a current diagnosis for this admission?: Yes Plan: Patient reporting lack of recollection of prior events during this hospitalization. Also still having disequilibrium. No findings on CT head with and without contrast. Rest of plan as above. Physical therapy - Time Time Spent with patient: 15-24 minutes
[2019-09-09] MEDS: KETOROLAC TROMETHAMINE INJ/PF 30 MG/1 ML SDV IV PRN ×2 (14:54→21:27)
[2019-09-09] MEDS ORDERED: ACETAMINOPHEN 325 MG TABLET PO PRN ×2 (17:56→18:00)
[2019-09-10] MEDS: IPRATROPIUM/ALBUTEROL 0.5-2.5 MG/3 ML AMPUL NEB SCH ×2 (00:20→07:47)
[2019-09-10] MEDS: HEPARIN SOD (PORCINE) 5,000 UNIT/ML 1 ML VIAL SUBCUT SCH ×3 (01:33→13:14)
[2019-09-10 06:29] LABS: ABSOLUTE EOSINOPHILS # (AUTO) 0.2 10^3/uL (0.0-0.6); ABSOLUTE LYMPHOCYTES (AUTO) 1.7 10^3/uL (0.5-4.7); ABSOLUTE MONOCYTES (AUTO) 0.6 10^3/uL (0.1-1.4); ABSOLUTE NEUT (AUTO) 3.6 10^3/uL (1.7-8.2); BASOPHILS % (AUTO) 0.8 % (0-2); EOSINOPHILS % (AUTO) 3.6 % (0-6); HEMATOCRIT 38.4 % (37.9-51.0); HEMOGLOBIN 13.1 g/dL (13.5-17.0); MEAN CORPUSCULAR HEMOGLOBIN 31.5 pg (27.0-33.4); MEAN CORPUSCULAR VOLUME 93 fl (80-97); MONOCYTES % (AUTO) 9.4 % (3-13); PLATELET COUNT 195 10^3/uL (150-450); RED BLOOD COUNT 4.15 10^6/uL (4.35-5.55); RED CELL DISTRIBUTION WIDTH 14.7 % (11.5-14.0); SEGMENTED NEUTROPHILS % (AUTO) 58.2 % (42-78); TOTAL CELLS COUNTED % (AUTO) 100 %; WHITE BLOOD COUNT 6.1 10^3/uL (4.0-10.5)
[2019-09-10 06:39] LABS: ANION GAP 9 (5-19); BLOOD UREA NITROGEN 14 mg/dL (7-20); CALCIUM 8.9 mg/dL (8.4-10.2); CARBON DIOXIDE 23 mmol/L (22-30); CHLORIDE 111 mmol/L (98-107); GLUCOSE 117 mg/dL (75-110); POTASSIUM 4.3 mmol/L (3.6-5.0)
[2019-09-10] MEDS: KETOROLAC TROMETHAMINE INJ/PF 30 MG/1 ML SDV IV PRN (08:21)
[2019-09-10] MEDS: LEVETIRACETAM 1500 MG/NACL-ISO 1,500 MG/100 ML RTUPB IV SCH (10:12)
[2019-09-10] MEDS: THIAMINE HCL 100 MG, FOLIC ACID 1 MG in NORMAL SALINE 250 ML IV SCH (12:00)
[2019-09-10] MEDS ORDERED: CYCLOBENZAPRINE HCL 10 MG TABLET PO PRN (12:22)
--- NOTE | 2019-09-10 13:30 | PDOC PROGRESS REPORT ---
Subjective Progress Note for:: 09/07/19 Subjective:: Patient was very drowsy and could not give much information during interview Reason For Visit: MENINGITIS PNEUMONIA Physical Exam Vital Signs: Temp Pulse Resp BP Pulse Ox 98.4 F 79 18 128/92 H 94 09/10/19 11:28 09/10/19 11:28 09/10/19 11:28 09/10/19 11:28 09/10/19 11:28 Intake & Output 09/09/19 09/10/19 09/11/19 06:59 06:59 06:59 Intake Total 520 1471.2 100 Output Total 400 Balance 520 1071.2 100 Weight 101.1 kg 101.1 kg Head exam: PRESENT: atraumatic Eye exam: PRESENT: EOMI Mouth exam: PRESENT: moist Neck exam: ABSENT: JVD Respiratory exam: PRESENT: clear to auscultation micky Cardiovascular exam: PRESENT: RRR, +S1, +S2 GI/Abdominal exam: PRESENT: normal bowel sounds, soft Neurological exam: PRESENT: awake, oriented to person, other - Awake but drowsy. Fairly slow to respond to questions. Unable to participate fully in physical exam. No motor deficits noted however.. ABSENT: oriented to place, oriented to time, oriented to situation Results Laboratory Results: 09/10/19 06:01 09/10/19 06:01 09/10/19 09/10/19 09/10/19 06:01 06:01 06:01 WBC 6.1 RBC 4.15 L Hgb 13.1 L Hct 38.4 MCV 93 MCH 31.5 MCHC 34.0 RDW 14.7 H Plt Count 195 Seg Neutrophils % 58.2 Sodium 142.7 Potassium 4.3 Chloride 111 H Carbon Dioxide 23 Anion Gap 9 BUN 14 Creatinine 0.95 Est GFR ( Amer) > 60 Glucose 117 H Calcium 8.9 Ammonia < 8.7 L 09/06/19 16:50 Creatine Kinase 193 H Impressions: Abdomen/Pelvis CT 09/06/19 17:00 IMPRESSION: There are no acute findings in the abdomen or pelvis. There is mild airspace disease in the lower lobes of the lungs, atelectasis versus pneumonia. Chest X-Ray 09/06/19 17:01 IMPRESSION: Low inspiratory lung volumes and patchy bibasilar opacities that could represent atelectasis. Clinical correlation to exclude an infection is recommended. Head CT 09/08/19 00:00 IMPRESSION: No acute intracranial pathology. No CT findings to explain new onset seizures. No abnormal intracranial contrast enhancement. EVIDENCE OF ACUTE STROKE: NO. Assessment and Plan - Diagnosis (1) Status epilepticus, generalized convulsive Is this a current diagnosis for this admission?: Yes Plan: - meningitis was less likely the cause of his seizure as he shows no evidence of infection Patient still very drowsy. May be from sedative meds he received earlier MRI pending (2) Hyperprolactinemia Is this a current diagnosis for this admission?: Yes (3) Chronic back pain Is this a current diagnosis for this admission?: Yes (4) Alcohol abuse Is this a current diagnosis for this admission?: Yes (5) Encephalopathy acute Is this a current diagnosis for this admission?: Yes - Plan Summary Summary: Believe patient's new onset seizures are likely due to - Time Time Spent with patient: 15-24 minutes
--- NOTE | 2019-09-10 13:36 | PDOC DISCHARGE SUMMARY ---
Impression - Admit/DC Date/PCP Admission Date/Primary Care Provider: 09/06/19 20:15 Discharge Date: 09/10/19 - Discharge Diagnosis (1) Status epilepticus, generalized convulsive Is this a current diagnosis for this admission?: Yes (2) Hyperprolactinemia Is this a current diagnosis for this admission?: Yes (3) Chronic back pain Is this a current diagnosis for this admission?: Yes (4) Alcohol abuse Is this a current diagnosis for this admission?: Yes (5) Encephalopathy acute Is this a current diagnosis for this admission?: Yes - Assessment Summary: Mr. Raman is a 59-year-old male who was brought in by EMS for dizziness and disequilibrium. In the ambulance patient had a general tonic-clonic seizure. He was given benzodiazepines at an attempt to relieve seizures. On presentation to the ER patient had 2 more seizures. He subsequently received he will more medication. There was notably no time Of return to normal consciousness in between the seizures. Patient subsequently admitted for status epilepticus. Notably patient has never had seizures in the past and though he drinks frequently, he has never had alcohol withdrawal according to him. During patient stay patient was initially started on antibiotics with suspicion of possible meningitis. However meningitis was deemed unlikely given the lack of any infectious signs and lack of meningismus. Antibiotics were discontinued. He was also thought that the seizure was unlikely from alcohol withdrawal as patient showed no evidence of autonomic overdrive in his vital signs. Patient had acceptable Ciwa scores. Head CT without contrast was negative. We will try to obtain an MRI given persistence of patient's encephalopathy as well as disequilibrium, but we were unable to do this because patient had a spinal implant on the MRI department required that patient had a functional remold to deactivate to the spinal implants before patient could be placed into the MRI machine. Unfortunately patient's remote was nonfunctional and patient had spinal implants done in [place]. In place of MRI, patient underwent CT head with and without contrast after discussion with radiology. CT head showed no evidence of any mass, stroke or other findings to explain his seizure. Patient underwent an EEG. Given patient's prolonged encephalopathy and disequilibrium after his seizures, and the inability to obtain an MRI, patient will be discharged home on Keppra for antiepileptic prophylaxis. Patient has, again today, been given strict instructions not to drive or operate heavy machinery until he is seizure-free for at least 6 to 12 months given risk of injuring or killing himself or somebody else. Patient has also been given strict instructions to follow-up with his primary care doctor and a neurologist outpatient to have an MRI done once he has resolved the issue about his nonfunctional implant removed, as the studies are sensitive than the CT head with and without contrast. patient's disequilibrium with encephalopathy of resolved for the most part and will be discharged home safely. - Additional Information Resuscitation Status: Full Code Discharge Diet: Regular Discharge Activity: No Driving, Slowly Increase Activity Prescriptions: Levetiracetam [Keppra 500 mg Tablet] 1,000 mg PO Q12 30 Days tablet Home Medications: Levetiracetam [Keppra 500 mg Tablet] 1,000 mg PO Q12 30 Days tablet 09/10/19 History of Present Illiness History of Present Illness: KIANNA RAMAN is a 59 year old male with a past medical history of chronic pain presents with intractable pain and recurrent tonic-clonic seizure with a brief postictal state. Patient presents after consuming a 5-hour energy drink followed by vomiting with lightheadedness followed by seizure prompting a call to EMS. EMS reports a second tonic-clonic seizure. He receives 5 mg of IM Versed and 2 mg of IV Ativan. In the emergency room he had several more episodes but returned to baseline. Biochemical and imaging work-up was unremarkable with exception to leukocytosis and elevated prolactin. He is referred to the hospitalist for admission. Patient admits daily alcohol but does not quantify. He denies previous episode, recent change of medication r egiment and is otherwise felt well With exception to poorly controlled chronic pain. Physical Exam Vital Signs: Temp Pulse Resp BP Pulse Ox 98.4 F 79 18 128/92 H 94 09/10/19 11:28 09/10/19 11:28 09/10/19 11:28 09/10/19 11:28 09/10/19 11:28 Intake & Output 09/09/19 09/10/19 09/11/19 06:59 06:59 06:59 Intake Total 520 1471.2 100 Output Total 400 Balance 520 1071.2 100 Weight 101.1 kg 101.1 kg General appearance: PRESENT: no acute distress, cooperative Head exam: PRESENT: atraumatic, normocephalic Eye exam: PRESENT: EOMI Neck exam: ABSENT: JVD, tracheal deviation Respiratory exam: PRESENT: clear to auscultation micky Cardiovascular exam: PRESENT: RRR, +S1, +S2 GI/Abdominal exam: PRESENT: normal bowel sounds, soft Musculoskeletal exam: PRESENT: ambulatory Neurological exam: PRESENT: alert, awake, oriented to person, oriented to place, oriented to time, oriented to situation, CN II-XII grossly intact, normal gait. ABSENT: abnormal gait, ataxia, aphasic Psychiatric exam: PRESENT: normal mood Results Laboratory Results: WBC 6.1 10^3/uL (4.0-10.5) 09/10/19 06:01 RBC 4.15 10^6/uL (4.35-5.55) L 09/10/19 06:01 Hgb 13.1 g/dL (13.5-17.0) L 09/10/19 06:01 Hct 38.4 % (37.9-51.0) 09/10/19 06:01 MCV 93 fl (80-97) 09/10/19 06:01 MCH 31.5 pg (27.0-33.4) 09/10/19 06:01 MCHC 34.0 g/dL (32.0-36.0) 09/10/19 06:01 RDW 14.7 % (11.5-14.0) H 09/10/19 06:01 Plt Count 195 10^3/uL (150-450) 09/10/19 06:01 Lymph % (Auto) 28.0 % (13-45) 09/10/19 06:01 [place] % (Auto) 9.4 % (3-13) 09/10/19 06:01 Eos % (Auto) 3.6 % (0-6) 09/10/19 06:01 Baso % (Auto) 0.8 % (0-2) 09/10/19 06:01 Absolute Neuts (auto) 3.6 10^3/uL (1.7-8.2) 09/10/19 06:01 Absolute Lymphs (auto) 1.7 10^3/uL (0.5-4.7) 09/10/19 06:01 Absolute Monos (auto) 0.6 10^3/uL (0.1-1.4) 09/10/19 06:01 Absolute Eos (auto) 0.2 10^3/uL (0.0-0.6) 09/10/19 06:01 Absolute Basos (auto) 0.0 10^3/uL (0.0-0.2) 09/10/19 06:01 Seg Neutrophils % 58.2 % (42-78) 09/10/19 06:01 Sodium 142.7 mmol/L (137-145) 09/10/19 06:01 Potassium 4.3 mmol/L (3.6-5.0) 09/10/19 06:01 Chloride 111 mmol/L (98-107) H 09/10/19 06:01 Carbon Dioxide 23 mmol/L (22-30) 09/10/19 06:01 Anion Gap 9 (5-19) 09/10/19 06:01 BUN 14 mg/dL (7-20) 09/10/19 06:01 Creatinine 0.95 mg/dL (0.52-1.25) 09/10/19 06:01 Est GFR ( Amer) > 60 (>60) 09/10/19 06:01 Est GFR (MDRD) Non-Af > 60 (>60) 09/10/19 06:01 Glucose 117 mg/dL (75-110) H 09/10/19 06:01 Calcium 8.9 mg/dL (8.4-10.2) 09/10/19 06:01 Total Bilirubin 0.4 mg/dL (0.2-1.3) 09/07/19 06:56 Direct Bilirubin 0.2 mg/dL (0.0-0.4) 09/07/19 06:56 Neonat Total Bilirubin Not Reportable 09/07/19 06:56 Neonat Direct Bilirubin Not Reportable 09/07/19 06:56 Neonat Indirect Bili Not Reportable 09/07/19 06:56 AST 28 U/L (17-59) 09/07/19 06:56 ALT 20 U/L (<50) 09/07/19 06:56 Alkaline Phosphatase 59 U/L (38-126) 09/07/19 06:56 Ammonia < 8.7 umol/L (9-33) L 09/10/19 06:01 Creatine Kinase 193 U/L (55-170) H 09/06/19 16:50 Total Protein 6.7 g/dL (6.3-8.2) 09/07/19 06:56 Albumin 4.0 g/dL (3.5-5.0) 09/07/19 06:56 Lipase 88.0 U/L (23-300) 09/06/19 16:50 TSH 0.60 uIU/mL (0.47-4.68) 09/06/19 16:50 Prolactin 27.19 ng/mL (3.7-17.9) H 09/06/19 16:50 Urine Color YELLOW 09/06/19 22:07 Urine Appearance CLEAR 09/06/19 22:07 Urine pH 6.0 (5.0-9.0) 09/06/19 22:07 Ur Specific [place] 1.029 09/06/19 22:07 Urine Protein NEGATIVE mg/dL (NEGATIVE) 09/06/19 22:07 Urine Glucose (UA) 150 mg/dL (NEGATIVE) H 09/06/19 22:07 Urine Ketones TRACE mg/dL (NEGATIVE) H 09/06/19 22:07 Urine Blood NEGATIVE (NEGATIVE) 09/06/19 22:07 Urine Nitrite Cancelled 09/06/19 22:07 Urine Nitrite (Reflex) NEGATIVE (NEGATIVE) 09/06/19 22:07 Urine Bilirubin NEGATIVE (NEGATIVE) 09/06/19 22:07 Urine Urobilinogen NEGATIVE mg/dL (<2.0) 09/06/19 22:07 Ur Leukocyte Esterase Cancelled 09/06/19 22:07 Leukocyte Esterase Rfl NEGATIVE (NEGATIVE) 09/06/19 22:07 Urine WBC (Auto) Cancelled 09/06/19 22:07 Urine RBC (Auto) 2 /HPF 09/06/19 22:07 U Hyaline Cast (Auto) 7 /LPF 09/06/19 22:07 Urine WBC (Reflex) 2 /HPF 09/06/19 22:07 Urine Mucus (Auto) OCC /LPF 09/06/19 22:07 Urine Ascorbic Acid NEGATIVE (NEGATIVE) 09/06/19 22:07 Urine Opiates Screen UNCONFIRMED POSITIVE 09/06/19 22:07 Urine Methadone Screen NEGATIVE 09/06/19 22:07 Ur Barbiturates Screen NEGATIVE 09/06/19 22:07 Ur Phencyclidine Scrn NEGATIVE 09/06/19 22:07 Ur Amphetamines Screen NEGATIVE 09/06/19 22:07 U Benzodiazepines Scrn UNCONFIRMED POSITIVE 09/06/19 22:07 Urine Cocaine Screen NEGATIVE 09/06/19 22:07 U Marijuana (THC) Screen NEGATIVE 09/06/19 22:07 Serum Alcohol < 10 mg/dL (NONE DETECTED) 09/06/19 16:50 Impressions: Abdomen/Pelvis CT 09/06/19 17:00 IMPRESSION: There are no acute findings in the abdomen or pelvis. There is mild airspace disease in the lower lobes of the lungs, atelectasis versus pneumonia. Chest X-Ray 09/06/19 17:01 IMPRESSION: Low inspiratory lung volumes and patchy bibasilar opacities that could represent atelectasis. Clinical correlation to exclude an infection is recommended. Head CT 09/06/19 18:24 IMPRESSION: No acute intracranial abnormality. EVIDENCE OF ACUTE STROKE: NO. Head CT 09/08/19 00:00 IMPRESSION: No acute intracranial pathology. No CT findings to explain new onset seizures. No abnormal intracranial contrast enhancement. EVIDENCE OF ACUTE STROKE: NO. Stroke Is this a Stroke Patient?: No Acute Heart Failure - Is this a Heart Failure Patient?: No
[2019-09-10 14:01] VITALS: BP 105/61
--- NOTE | 2019-09-10 18:33 | NEURO WORKBENCH EEG REPORT ---
EEG Report Patient: Yahir Raman ID: [id number] Referring Doctor: Jae Onwe Date: 09/10/2019 Reason for study: Evaluate Epileptiform activity Medications: Duoneb, Porcine, Hydralazine, Toradol, Keppra, Thiamine/Folic Acid, Tylenol History: This is a 59 year old male with a history of chronic back pain, alcohol use, admitted with status epilepticus on September 08, 2019. Meningitis was considered but not thought to ultimately be an underlying diagnosis. This EEG was requested for evaluation of epileptiform activity. EEG Interpretation: This EEG showed prominent drowsiness and frequent transitions between wakefulness and sleep. This EEG was recorded during wakefulness, stage I, and stage II sleep. The awake EEG is characterized by a background without a well developed and reactive posterior dominant rhythm (PDR). The wakefulness background EEG activity consists of predominantly diffuse low amplitude beta activity with occasional 8-10 Hz alpha activity. There is frequent diffuse 4-7 Hz theta , more prominent in the central regions. The EEG is symmetric in amplitudes and frequencies. There was Mu rhythm noted in the bilateral central regions, left more commonly than right. Photic stimulation resulted in minimal photic driving, and there was no epileptiform activity elicited with photic stimulation. Hyperventilation resulted in the appearance of more sustained diffuse 6-7 Hz theta activity and occasional fragmentary diffuse delta activity (normal for age) and no epileptiform activity was elicited. Stage I sleep was achieved and characterized by slow rolling eye movements, slowing of the background rhythm. Stage II sleep was achieved with K-complexes and symmetric sleep spindles. There were no epileptiform abnormalities (no sharp waves and no spikes). There were no seizures. The EKG showed a regular rhythm with typically 60-70 beats per minute. EEG Impression: This EEG is mildly abnormal due to mild background EEG slowing (frequent diffuse theta activity during the best achieved wakefulness - which may be due to drowsiness or medication effect). Note that the patient was given an unspecified pain medication prior to this EEG which could potentially contribute to drowsiness and background slowing. There was also diffuse low amplitude beta activity which is non-specific but may be seen with medications such as benzodiazepines. Consideration should be given to a repeat alert EEG without sleep deprivation and in the absence of sedating medications to assess for the best awake background activity to determine if there is any global background slowing present during an alert state. There was no epileptiform activity or seizures. However, the patient is taking Keppra which could potentially suppress interictal epileptiform activity. A single normal routine EEG does not rule out the possibility of epilepsy. If there is high clinical suspicion for epilepsy, then additional routine EEG evaluation or more prolonged EEG monitoring should be considered. INTERPRETING NEUROLOGIST: Jesus Cruz MD Board certified by the [place] [employer] in Neurology, Clinical Neurophysiology, and Sleep Medicine [facility]
== END 2019-09-10 15:15 | disposition home or self-care (01) | DRG 101 ==
LOC: ER 16:49 → EH 20:15 → 3S 09-07 02:09
PROVIDERS: ADMIT Internal Medicine; ATTEND Internal Medicine
DX: G40.901 Epilepsy, unspecified, not intractable, with status epilepticus (principal); G93.40 Encephalopathy, unspecified; E22.1 Hyperprolactinemia; G89.29 Other chronic pain; F10.10 Alcohol abuse, uncomplicated; I10 Essential (primary) hypertension; M54.5 Low back pain; F17.200 Nicotine dependence, unspecified, uncomplicated; Z82.49 Family history of ischemic heart disease and other diseases of the circulatory system
CPT/HCPCS: 36415; 70450; 70470; 71045; 74176; 80048; 80053; 80307; 81001; 82140; 82550; 83690; 84146; 84443; 85025; 87040; 93005; 93010; 94640; 94799; 95819; 96365; 96366; 96367; 96375; 99291; J0696; J1165; J1644; J1885; J1953; J2060; J2405; J2543; J3010; J3360; J3370; J3411; J3490; J7050; J7060; J7620